=== PATIENT | male | born 1995 | race African-American/Black ===

== ENCOUNTER 2022-11-09 12:53 | Emergency (ER) | payer MEDICAID ==
[~2022-11-09] VITALS: Ht 182.9 cm; Wt 81.0 kg
[2022-11-09 13:01] VITALS: BP 107/65; PULSE 86; RESP 20; O2SAT 98
[2022-11-09 14:30] VITALS: TEMP 98.4
[2022-11-09] MEDS ORDERED: GUAIFENESIN 600MG ER TABLET PO ONE (14:30)
[2022-11-09] MEDS ORDERED: ACETAMINOPHEN 325MG TABLET PO ONE (14:30)
[2022-11-09] MEDS ORDERED: ALBUTEROL 6.7GM HFA INHALER ORI ONE (14:30)
[2022-11-09] MEDS ORDERED: ACET-2708 MT (15:51)
[2022-11-09] MEDS ORDERED: GUAI600T26 MT (15:51)
== END 2022-11-09 16:11 | disposition home or self-care (01) ==
LOC: ER 12:53
DX: J40 Bronchitis, not specified as acute or chronic (principal); Z00.00 Encounter for general adult medical examination without abnormal findings; Z20.822 Contact with and (suspected) exposure to COVID-19
CPT/HCPCS: 71045; 99284; 87426; Z7610; C9803